=== PATIENT | male | born 1990 | race Caucasian/White ===

== ENCOUNTER 2020-03-19 14:38 | Emergency (ER) | payer OTHER ==
[2020-03-19 14:58] VITALS: BP 136/72; PULSE 81; RESP 16; TEMP 98.4
[2020-03-19] MEDS: LIDOCAINE 1% INJ 10MG/ML (20 ML MDV) SQ ONE (15:24)
[2020-03-19] MEDS: BACITRACIN OINT 1 EACH PACKET TOPICAL ONE (15:26)
--- NOTE | 2020-03-19 15:27 | ED ---
Wound/Laceration HPI - General Chief Complaint: Wound/Laceration Stated Complaint: left hand lac Time Seen by Provider: 03/19/20 14:59 Source: patient Mode of arrival: ambulatory Limitations: no limitations - History of Present Illness Initial Comments: 29yo presenting for left hand laceration. tdap UTD. states cut hand when opening a carpet cutting knife. he states the was not cutting the carpeting at that time. denies concern for foreign body. he states knife blade intact after cut. denies thumb limited ROM or strength deficits. bleeding controlled on arrival. no additional complaints. - Related Data Allergies Allergy/AdvReac Type Severity Reaction Status Date / Time amoxicillin Allergy Anaphylaxis Verified 03/19/20 14:59 mold Allergy Anaphylaxis Verified 03/19/20 14:59 Penicillins Allergy Anaphylaxis Verified 03/19/20 14:59 Review of Systems ROS Statement: Those systems with pertinent positive or pertinent negative responses have been documented in the HPI. ROS Other: All systems not noted in ROS Statement are negative. Past Medical History Past Medical History: No Reported History History of Any Multi-Drug Resistant Organisms: None Reported Past Surgical History: No Surgical Hx Reported Past Psychological History: No Psychological Hx Reported Smoking Status: Former smoker Past Alcohol Use History: None Reported Past Drug Use History: Marijuana General Exam - General Exam Comments Initial Comments: General: The patient is awake and alert, in no distress Eye: +3 mm pupils are equal, round and reactive to light, extra-ocular movements are intact. No nystagmus. There is normal conjunctiva bilaterally. No signs of icterus. Cardiovascular: There is a regular rate and rhythm. No murmur, rub or gallop is appreciated. Respiratory: Lungs are clear to auscultation, respirations are non-labored, breath sounds are equal. No wheezes, stridor, rales, or rhonchi. Gastrointestinal: Soft, non-distended, non-tender abdomen without masses or organomegaly noted. There is no rebound or guarding present. Musculoskeletal: Normal ROM, no tenderness. Strength 5/5 the MCP, DIP, PIP (IP) joints of all five digits respectively. Sensation intact. Radial pulses equal bilaterally 2+. Neurological: A&O x 3. CN II-XII intact grossly, There are no obvious motor or sensory deficits. Coordination appears grossly intact. Speech is normal. Skin: Skin is warm and dry and no rashes. 3cm laceration of the left thenar eminence. bleednig controlled. small amount of adipose exposed. Psychiatric: Cooperative, appropriate mood & affect, normal judgment. Limitations: no limitations Course Vital Signs 03/19/20 14:54 Temperature 98.4 F Pulse Rate 81 Respiratory 16 Rate Blood Pressure 136/72 O2 Sat by Pulse 99 Oximetry Procedures - Laceration Laceration #1 Consent Obtained: verbal consent Indication: laceration Site: hand Size (cm): 3 Description: linear Depth: simple, single layer Anesthetic Used: lidocaine 1% Anesthesia Technique: local infiltration Amount (mls): 2 Pre-repair: wound explored, irrigated extensively, deep structures intact Type of Sutures: nylon Size of Sutures: 5-0 Number of Sutures: 6 Patient Tolerated Procedure: well, no complications Medical Decision Making - Medical Decision Making cleansed, repaired. no evidence of tendon injury or foreign body. tdap is UTD. return and care discussed pt discharged appearing well. Disposition Clinical Impression: Laceration of left hand Disposition: HOME SELF-CARE Condition: Good Additional Instructions: Please use medication as discussed. Please follow-up with family doctor in the next 2 days, return for suture removal in 7-10 days. No submerging hand and bodies of water bathtub sinks. Please return to emergency room if the symptoms increase or worsen or for any other concerns. Is patient prescribed a controlled substance at d/c from ED?: No Referrals: None,Stated [Primary Care Provider] - 1-2 days Time of Disposition: 15:27
== END 2020-03-19 15:51 | disposition home or self-care (01) ==
LOC: EC 14:38
DX: S61.412A Laceration without foreign body of left hand, initial encounter (principal); Z88.0 Allergy status to penicillin; Z91.048 Other nonmedicinal substance allergy status; Z87.891 Personal history of nicotine dependence; W26.0XXA Contact with knife, initial encounter; Y93.89 Activity, other specified
CPT/HCPCS: 12002; 99282; J2001